=== PATIENT | female | born 1965 | race Two or more races ===

== ENCOUNTER 2016-11-16 13:54 | Emergency (ER) | payer MEDICAID, OTHER ==
[~2016-11-16] VITALS: Ht 170.2 cm; Wt 65.0 kg
[2016-11-16] MEDS ORDERED: ACETAMINOPHEN 325MG TABLET PO ONE (16:15)
[2016-11-16] MEDS ORDERED: TRAMADOL 50MG TABLET PO PRN (16:15)
[2016-11-16 16:32] VITALS: BP 109/75
== END 2016-11-16 16:36 | disposition home or self-care (01) ==
LOC: ER 14:09
DX: F43.10 Post-traumatic stress disorder, unspecified (principal); F41.9 Anxiety disorder, unspecified
CPT/HCPCS: 99283; Z7610